=== PATIENT | female | born 1990 | race Caucasian/White ===

== ENCOUNTER 2020-10-02 13:05 | Emergency (ER) | payer OTHER ==
[~2020-10-02] VITALS: Ht 167.6 cm; Wt 56.7 kg
[~2020-10-02 13:05] MED LIST: CLINDAMYCIN HC300 MG PO; NAPROSYN250 MG PO
[2020-10-02] MEDS ORDERED: CITALOPRAM10 MG PO (13:41)
== END 2020-10-02 13:57 | disposition home or self-care (01) ==
LOC: ED 13:05
DX: F19.239 Other psychoactive substance dependence with withdrawal, unspecified (principal); Z79.899 Other long term (current) drug therapy

== ENCOUNTER 2022-09-14 13:46 | Emergency (ER) | payer OTHER ==
[~2022-09-14] VITALS: Ht 167.6 cm; Wt 70.8 kg
[~2022-09-14 13:46] MED LIST changes: +CITALOPRAM10 MG PO
[2022-09-14 14:30] LABS: BASO % 0.6 % (0.0-1.0); EOS # 0.1 10*3/uL (0.0-0.4); EOS % 1.8 % (1.0-4.0); HEMATOCRIT 41.5 % (37.0-47.0); LYMPH # 1.7 10*3/uL (1.3-4.4); LYMPH % 24.9 % (27.0-41.0); MEAN CELL VOLUME 91.8 fl (81.0-99.0); MEAN CORPUSCULAR HGB 31.2 pg (27.0-31.0); MEAN PLATELET VOLUME 11.5 fl (9.6-12.3); MONO # 0.6 10*3/uL (0.1-1.0); MONO % 8.7 % (3.0-9.0); NEUT # 4.3 10*3/uL (2.3-7.9); NEUT % 63.8 % (47.0-73.0); PLATELET COUNT AUTOMATED 210 10*3/uL (130-400); RED BLOOD COUNT 4.52 10*6/uL (4.10-5.10); RED CELL DISTRI WIDTH 11.7 % (0-14.5); WHITE BLOOD COUNT 6.7 10*3/uL (4.8-10.8)
[2022-09-14 14:51] LABS: ALKALINE PHOSPHATASE 67 U/L (46-116); BUN 10 mg/dl (9-23); CHLORIDE 111 mmol/L (98-107); LIPASE 42 U/L (12-53); TOTAL PROTEIN 6.9 gm/dL (6.0-8.0)
[2022-09-14 14:52] LABS: SGPT/ALT < 7 U/L (10-49)
[2022-09-14] MEDS ORDERED: MELOXICAM15 MG PO (15:36)
[2022-09-14 17:14] LABS: B-hCG (QUALITATIVE) NEGATIVE (NEGATIVE)
== END 2022-09-14 15:41 | disposition home or self-care (01) ==
LOC: ED 13:46
PROVIDERS: Internal Medicine
DX: M94.0 Chondrocostal junction syndrome [Tietze] (principal); R19.7 Diarrhea, unspecified; Z88.8 Allergy status to other drugs, medicaments and biological substances

== ENCOUNTER 2025-01-24 12:36 | Emergency (ER) | payer OTHER ==
[~2025-01-24] VITALS: Ht 167.6 cm; Wt 72.6 kg
[~2025-01-24 12:36] MED LIST changes: +MELOXICAM15 MG PO
[2025-01-24] MEDS ORDERED: CLINDAMYCIN HC300 MG PO (13:08)
[2025-01-24] MEDS ORDERED: TYLE3UD PO (13:08)
== END 2025-01-24 13:10 | disposition home or self-care (01) ==
LOC: ED 12:36
DX: K02.9 Dental caries, unspecified (principal); K04.7 Periapical abscess without sinus; R09.81 Nasal congestion; Z79.899 Other long term (current) drug therapy